=== PATIENT | female | born 1955 | race Hispanic/Latino ===

== ENCOUNTER 2018-09-19 22:02 | Emergency (ER) | payer BC ==
[2018-09-19 22:43] VITALS: BP 135/79; PULSE 74; RESP 16; TEMP 98.2; O2SAT 98
--- NOTE | 2018-09-20 00:58 | ED PDOC ---
Upper Extremity Pain/Injury Time Seen by Provider: 09/20/18 00:20 Chief Complaint (Nursing): Trauma Chief Complaint (Provider): left elbow pain History Per: Patient History/Exam Limitations: no limitations Onset/Duration Of Symptoms: Hrs Current Symptoms Are (Timing): Still Present Quality: "Pain" Severity: Moderate Pain Scale Rating Of: 8 Exacerbating Factor(s): Movement Additional Complaint(s): 63 y/o right-hand dominant female came into the ed ambulatory after a trip and fall on the side walk this evening at approx 9:30pm. pt c/o left elbow pain and shoulder "soreness". Pt reports she fell forward and onto left side of the body. Pt denies head injury or pain to other parts of the body. After fall pt reports she went home but came to ed due to increase pain and swelling to left elbow. pt did not take meds for home. denies nausea/vomiting/dizziness. Past Medical History Reviewed: Historical Data, Nursing Documentation, Vital Signs Vital Signs: Last Vital Signs Temp 98.2 F 09/19/18 22:42 Pulse 74 09/19/18 22:42 Resp 16 09/19/18 22:42 BP 135/79 09/19/18 22:42 Pulse Ox 98 09/19/18 22:42 - Medical History PMH: Atrial Fibrillation (Had an ablation 2017) - Surgical History Other surgeries: ankle sx, bunionectomy, right wrist pain - Family History Family History: States: Unknown Family Hx - Social History Current smoker - smoking cessation education provided: No Ex-Smoker (has not smoked in the last 12 months): No Alcohol: None Drugs: Denies - Immunization History Hx Tetanus Toxoid Vaccination: No Hx Influenza Vaccination: Yes Hx Pneumococcal Vaccination: No - Allergies Allergies/Adverse Reactions: Allergies Allergy/AdvReac Type Severity Reaction Status Date / Time codeine Allergy NAUSEA Verified 09/19/18 22:42 Review of Systems Musculoskeletal: Positive for: Shoulder Pain, Arm Pain, Other (left elbow pain) Physical Exam - Physical Exam Appears: Positive for: Well Head Exam: Positive for: NORMAL INSPECTION Skin: Positive for: Normal Color Respiratory: Positive for: Normal Breath Sounds Pulses-Radial (L): 2+ Pulses-Radial (R): 2+ Back: Positive for: Normal Inspection Extremity: Positive for: Tenderness (left olecranon tenderness, distal left humerus tenderness, lateral aspect left elbow tenderness; limited rom due to pain, +swelling noted. full rom of left wrist. DIstal NV/motor intact), Capillary Refill (<3 sec b/l UE), Swelling Neurological/Psych: Positive for: Awake, Alert - ECG O2 Sat by Pulse Oximetry: 98 - Radiology X-Ray: Read By Radiologist - Progress ED Course And Treament: MEDS: MOTRIN 600MG PO ONCE STAT RAD: LEFT ELBOW XRAY Left elbow, 3 views. Indication: Fall, elbow swelling and pain. Findings: Acute oblique nondisplaced radial head/neck fracture. Displaced bone ragment adjacent to the tip of the lateral femoral condyle, possibly secondary to trauma. Moderate hemarthrosis. Soft tissue edema and swelling. Impression: Acute fracture of the radial head/neck. Hemarthrosis. Displaced bone fragment adjacent to lateral humeral condyle, possibly secondary to acute trauma Patient educated on xray findings, placed in posterior splint/sling by nanoscience technician. RUE NV intact s/p splint application Patient was instructed to keep extremity elevated while resting, ice, and to take motrin or tylenol for pain. Advised ortho follow up Return precautions given Disposition - Clinical Impression Clinical Impression: Elbow fracture, left - Patient ED Disposition Is Patient to be Admitted: No Counseled Patient/Family Regarding: Studies Performed, Diagnosis, Need For Followup, Rx Given - Disposition Referrals: Shamar Trammell III, MD [Staff Provider] - Disposition: Routine/Home Disposition Time: 01:32 Condition: STABLE Instructions: Elbow Fracture (DC) Forms: [employer] ([place])
--- NOTE | 2018-09-20 08:11 | RAD ---
Date of service: 09/20/2018 PROCEDURE: Radiographs of the left elbow. HISTORY: FALL/ ELBOW SWELLING AND PAIN COMPARISON: No prior. FINDINGS: BONES: No acute cardiopulmonary disease appreciated. JOINTS: Normal. No osteoarthritis. SOFT TISSUES: Normal. JOINT EFFUSION: None. OTHER FINDINGS: None IMPRESSION: Unremarkable radiographs of the left elbow.
== END 2018-09-20 02:11 | disposition home or self-care (01) ==
LOC: H.ER 22:02
DX: S42.402A Unspecified fracture of lower end of left humerus, initial encounter for closed fracture (principal); W19.XXXA Unspecified fall, initial encounter; Y92.480 Sidewalk as the place of occurrence of the external cause; I48.91 Unspecified atrial fibrillation; Z87.891 Personal history of nicotine dependence